=== PATIENT | female | born 1955 | race Caucasian/White ===

== ENCOUNTER 2022-03-25 09:37 | Outpatient (CLI) | payer MEDICARE | END 2022-03-25 09:38 | disposition home or self-care (01) | LOC: BICMAMMO 09:37 | PROVIDERS: ATTEND Internal Medicine | DX: Z13.820 Encounter for screening for osteoporosis (principal); Z78.0 Asymptomatic menopausal state | CPT/HCPCS: 77080 ==

== ENCOUNTER 2024-04-09 19:59 | Inpatient (IN) | payer MEDICARE ==
[2024-04-09] MEDS ORDERED: traMADol HCl 50 MG TAB PO PRN (22:37)
[2024-04-09] MEDS ORDERED: Acetaminophen 325 MG TAB PO PRN (22:37)
[2024-04-09 22:38] VITALS: BMI 27.9
[2024-04-09] MEDS: Morphine 4 MG/ML VIAL SLOW IVP PRN (23:06)
[2024-04-09] MEDS: Sodium Chloride 0.9% 1,000 ML IV SCH (23:08)
[2024-04-10 05:13] LABS: #Basophils 0.05 10x3/uL (0.0-0.2); %Basophils 0.4 % (0.0-1.0); %Eosinophils 0.7 % (0.0-10.0); %Lymphocytes 13.4 % (21.0-51.0); %Monocytes 11.5 % (0.0-10.0); %Neutrophils 73.6 % (42.0-75.0); Hemoglobin 10.7 g/dL (12.0-16.0); Mean Corpuscular HGB CONC 32.4 g/dL (32.0-36.0); Mean Corpuscular Volume 74.2 fL (78.0-98.0); Mean Platelet Volume 9.4 fL (7.4-10.4); Platelet Count 446 10x3/uL (130-400); RBC Distribution Width 16.6 % (11.5-14.5); Red Blood Cell (RBC) Count 4.45 mill/uL (4.20-5.40)
[2024-04-10 05:28] LABS: ALT (SGPT) 13 U/L (8-55); AST (SGOT) 12 U/L (5-34); Albumin 2.7 g/dL (3.4-4.8); Alkaline Phosphatase 65 U/L (40-110); Anion Gap 13 mmol/L (10-20); BUN (Urea Nitrogen) 8 mg/dL (9.8-20.1); Bilirubin, Total 0.5 mg/dL (0.2-1.2); Calc. Creatinine Clearance 104 mL/min (70-130); Calcium 8.9 mg/dL (7.8-10.44); Carbon Dioxide 23 mmol/L (23-31); Chloride 101 mmol/L (98-107); Estimated GFR 98; Globulin 3.8 g/dL (2.4-3.5); Glucose 97 mg/dL (80-115); Potassium 3.4 mmol/L (3.5-5.1); Protein, Total 6.5 g/dL (5.8-8.1); Sodium 134 mmol/L (136-145)
[2024-04-10] MEDS: Meropenem 1 GM in Sodium Chloride 0.9% 100 ML IVPB SCH (05:39)
[2024-04-10] MEDS: Famotidine 20 MG TAB PO SCH (07:26)
[2024-04-10] MEDS: Acetaminophen 325 MG TAB PO SCH (07:26)
[2024-04-10] MEDS ORDERED: Iopamidol-370 76% 500 ML MDV (1 ML CHARGE) ONE (11:04)
[2024-04-10] MEDS: traMADol HCl 50 MG TAB PO SCH (11:20)
[2024-04-10] MEDS: Ondansetron PF 4 MG/2 ML Vial IVP PRN (11:31)
[2024-04-10] MEDS ORDERED: hydrALAZINE 20 MG/ML VIAL SLOW IVP PRN (11:48)
[2024-04-10] MEDS: Promethazine HCl 25 MG/ML VIAL IM PRN (14:29)
[2024-04-10] MEDS: ALPRAZolam 0.5 MG TAB PO PRN (18:49)
[2024-04-10] MEDS: Atorvastatin Calcium 10 MG TAB PO SCH (20:28)
[2024-04-11 05:27] LABS: #Basophils 0.05 10x3/uL (0.0-0.2); %Basophils 0.5 % (0.0-1.0); %Lymphocytes 10.9 % (21.0-51.0); %Monocytes 11.9 % (0.0-10.0); %Neutrophils 75.3 % (42.0-75.0); Hemoglobin 10.2 g/dL (12.0-16.0); Mean Corpuscular HGB CONC 31.9 g/dL (32.0-36.0); Mean Corpuscular Hemoglobin 24.1 pg (27.0-31.0); Mean Corpuscular Volume 75.7 fL (78.0-98.0); Mean Platelet Volume 9.2 fL (7.4-10.4); Platelet Count 426 10x3/uL (130-400); RBC Distribution Width 17.1 % (11.5-14.5); Red Blood Cell (RBC) Count 4.23 mill/uL (4.20-5.40)
[2024-04-11 05:40] LABS: INR-International Normal Ratio 1.4; Prothrombin Time 17.1 sec (12.0-14.7)
[2024-04-11 05:41] LABS: PTT 47.5 sec (22.9-36.1)
[2024-04-11 05:45] LABS: Anion Gap 11 mmol/L (10-20); BUN (Urea Nitrogen) 8 mg/dL (9.8-20.1); Calc. Creatinine Clearance 113 mL/min (70-130); Calcium 8.7 mg/dL (7.8-10.44); Carbon Dioxide 26 mmol/L (23-31); Chloride 100 mmol/L (98-107); Estimated GFR 99; Glucose 87 mg/dL (80-115); Potassium 3.3 mmol/L (3.5-5.1); Sodium 134 mmol/L (136-145)
[2024-04-11] MEDS: Levothyroxine Sodium 50 MCG TAB PO SCH (05:56)
[2024-04-11] MEDS: Loratadine 10 MG TAB PO SCH (08:12)
[2024-04-11] MEDS ORDERED: Ondansetron ODT 8 MG TAB SL PRN (14:37)
[2024-04-11] MEDS ORDERED: Ondansetron ODT 4 MG TAB PO PRN (14:37)
[2024-04-11] MEDS: Scopolamine 1 mg/72 hour Patch TD SCH (16:07)
[2024-04-11] MEDS: LevoFLOXacin 750 mg/D5W 750 MG in Premix 1 BAG IVPB SCH (16:51)
[2024-04-11] MEDS: Ketorolac Tromethamine 30 MG (1 mL) VIAL IVP SCH (17:28)
[2024-04-11] MEDS: Acetaminophen 500 MG TAB PO SCH (17:28)
[2024-04-11] MEDS: Enoxaparin 40 MG (0.4 mL) SYRINGE SC SCH (20:23)
[2024-04-11] MEDS ORDERED: METRONIDAZOLE IVPB SCH (22:00)
[2024-04-11] MEDS: metroNIDAZOLE 750 MG in Admixture Fee 1 EACH IVPB SCH (23:12)
[2024-04-11] MEDS: Methylcellulose 500 MG TAB PO SCH (23:13)
[2024-04-12 05:19] LABS: #Basophils 0.04 10x3/uL (0.0-0.2); %Basophils 0.4 % (0.0-1.0); %Eosinophils 1.8 % (0.0-10.0); %Monocytes 11.4 % (0.0-10.0); Hematocrit 33.3 % (36.0-47.0); Hemoglobin 10.8 g/dL (12.0-16.0); Mean Corpuscular HGB CONC 32.4 g/dL (32.0-36.0); Mean Corpuscular Hemoglobin 24.3 pg (27.0-31.0); Mean Corpuscular Volume 74.8 fL (78.0-98.0); Platelet Count 396 10x3/uL (130-400); RBC Distribution Width 16.9 % (11.5-14.5); Red Blood Cell (RBC) Count 4.45 mill/uL (4.20-5.40)
[2024-04-12] MEDS: Polyethylene Glycol 3350 17 GM Packet PO SCH (09:37)
[2024-04-12] MEDS ORDERED: Ibuprofen 600 MG TAB PO PRN (11:08)
[2024-04-12 14:11] VITALS: BP 152/65; TEMP 98.3
[2024-04-12] MEDS ORDERED: metroNIDAZOLE 500 MG TAB PO SCH (15:00)
[2024-04-13] MEDS ORDERED: LevoFLOXacin 750 MG TAB PO SCH (06:00)
== END 2024-04-12 12:11 | disposition home or self-care (01) | DRG 373 ==
LOC: MSONC 21:35
PROVIDERS: ADMIT Surgery; ATTEND Surgery
DX: K35.33 Acute appendicitis with perforation, localized peritonitis, and gangrene, with abscess (principal); E78.5 Hyperlipidemia, unspecified; I10 Essential (primary) hypertension; Z88.0 Allergy status to penicillin; Z79.899 Other long term (current) drug therapy; Z79.890 Hormone replacement therapy
CPT/HCPCS: 36415; 74177; 80048; 80053; 85025; 85610; 85730; J1885; J1956; J2185; J2272; J2405; J2550; J7030; Q9967